=== PATIENT | male | born 1955 | race African-American/Black ===

== ENCOUNTER 2017-01-29 01:55 | Emergency (ER) | payer MEDICAID ==
[~2017-01-29] VITALS: Ht 182.9 cm; Wt 90.7 kg
[2017-01-29 02:00] VITALS: BP 145/86
--- NOTE | 2017-01-29 03:42 | Emergency Room Report ---
History of Present Illness General Chief Complaint: General Complaint Source: Patient Present Illness HPI Is a 61-year-old male with no significant past medical history. He presents with chief complaint of wanting a place to sleep. Also want to see licensed clinical social worker. Patient said that he was in a boarding care about 2 months ago. He left because he said he didn't feel safe there. He has been wandering around [place] in [facility]. He goes to hospital at night. He been placed another boarding care but did not like it. Does not want to go to [facility]. Denies suicidal thought homicidal thought. Denies any pain. No other complaint. Allergies: Coded Allergies: No Known Allergies (Unverified , 01/29/17) Patient History Past Medical History: see triage record, old chart reviewed Past Surgical History: other Pertinent Family History: none Social History: Denies: smoking Immunizations: other Reviewed Nursing Documentation: PMH: Agreed, PSxH: Agreed Nursing Documentation-PMH Hx Hypertension: Yes History Of Psychiatric Problem: Yes - SCHIZO Review of Systems Eye: Denies: blurred vision, eye pain ENT: Denies: ear pain, nose congestion, throat swelling Respiratory: Denies: cough, shortness of breath Cardiovascular: Denies: chest pain, palpitations Gastrointestinal: Denies: abdominal pain, diarrhea, nausea, vomiting Musculoskeletal: Denies: back pain, joint pain Skin: Denies: rash Neurological: Denies: headache, numbness Endocrine: Denies: increased thirst, increased urine Hematologic/Lymphatic: Denies: easy bruising All Other Systems: negative except mentioned in HPI Physical Exam Vital Signs Date Time Temp Pulse Resp B/P Pulse Ox O2 Delivery O2 Flow Rate FiO2 01/29/17 01:47 98.2 90 16 149/85 96 Room Air vitals unremarkable Sp02 EP Interpretation: reviewed, normal General Appearance: well appearing, no apparent distress, alert Head: normocephalic, atraumatic Eyes: bilateral eye EOMI, bilateral eye PERRL ENT: hearing grossly normal, normal pharynx Neck: full range of motion, supple, no meningismus Respiratory: chest non-tender, lungs clear, normal breath sounds Cardiovascular #1: regular rate, rhythm, no murmur Gastrointestinal: normal bowel sounds, non tender, no mass, no organomegaly, no bruit, non-distended Musculoskeletal: back normal, gait/station normal, normal range of motion Neurologic: alert, oriented x3 Psychiatric: mood/affect normal Skin: warm/dry Medical Decision Making Diagnostic Impression: Primary Impression: Encounter for medical screening examination ER Course Patient presents with morning to see licensed clinical social worker. After he slept, he said he wants to leave. Does not want to wait in the morning to see licensed clinical social worker. He is competent to make that decision. He does not want to go to a [facility]. We' ll discharge home. Last Vital Signs Date Time Temp Pulse Resp B/P Pulse Ox O2 Delivery O2 Flow Rate FiO2 01/29/17 02:00 98.2 88 16 145/86 100 Room Air Status: improved Disposition: HOME, SELF-CARE Condition: Stable Referrals: [facility] (PCP) AGA TYSON M.D. Jan 29, 2017 03:42
[2017-01-29 03:50] VITALS: BP 130/87
== END 2017-01-29 03:50 | disposition home or self-care (01) ==
LOC: EDBD 01:55 → EMR 03:30
DX: Z00.00 Encounter for general adult medical examination without abnormal findings (principal); Z59.0 Homelessness; I10 Essential (primary) hypertension; F20.9 Schizophrenia, unspecified
CPT/HCPCS: 99283

== ENCOUNTER 2017-03-24 05:24 | Emergency (ER) | payer MEDICAID ==
[~2017-03-24] VITALS: Ht 182.9 cm; Wt 90.7 kg
--- NOTE | 2017-03-24 05:31 | Emergency Room Report ---
History of Present Illness General Chief Complaint: General Complaint Source: Patient Present Illness HPI 61YOM BIBEMS "because I've been walking all night." Patient was waiting to take train downtown. When he heard it would take 20minutes, he called EMS instead. Earlier this evenign he walked from his [facility] to [place] [facility] and was treated and released. He denies chest pain, SOB, abd pain, headache, fever/ chills, urinary complaints. He denies any pain. States history of HTN but doesnt believe in medication because "it makes me drowsy." States he is trying to control it with meditation. Denies other med or psych problems. Denies taking other medications. Patient seen 01/29 for similar complaint - at the time looking for place to sleep and request to see SW. After sleeping overnight, patient declined wanting to see SW and walked out. Allergies: Coded Allergies: No Known Allergies (Unverified , 01/29/17) Patient History Past Medical History: none Past Surgical History: none Pertinent Family History: none Social History: Denies: alcohol use, drug use, smoking Immunizations: UTD Reviewed Nursing Documentation: PMH: Agreed, PSxH: Agreed Nursing Documentation-PMH Hx Hypertension: Yes Review of Systems All Other Systems: negative except mentioned in HPI Physical Exam Vital Signs Date Time Temp Pulse Resp B/P Pulse Ox O2 Delivery O2 Flow Rate FiO2 03/24/17 05:17 97.5 86 16 170/83 95 Room Air Sp02 EP Interpretation: reviewed, abnormal General Appearance: normal inspection, well appearing, no apparent distress, alert, GCS 15, non-toxic Head: normocephalic, atraumatic Eyes: bilateral eye EOMI, bilateral eye PERRL ENT: normal ENT inspection, hearing grossly normal, normal voice Neck: normal inspection, full range of motion, supple, no bony tend Respiratory: normal inspection, lungs clear, normal breath sounds, no respiratory distress, no retraction, no wheezing Cardiovascular #1: regular rate, rhythm, no edema Gastrointestinal: normal inspection, normal bowel sounds, non tender, soft, no guarding, no hernia Genitourinary: no CVA tenderness Musculoskeletal: normal inspection, back normal, normal range of motion, Jojo' s Sign negative Neurologic: normal inspection, alert, oriented x3, responsive, speech normal Psychiatric: normal inspection, judgement/insight normal, mood/affect normal Skin: other - bed bugs noted on patient Medical Decision Making Diagnostic Impression: Primary Impression: Encounter for generalized patient complaints Additional Impressions: Infestation by bed bug HTN (hypertension) Qualified Codes: I10 - Essential (primary) hypertension ER Course Patient here for medical screening exam Elevated BP. Likely history of HTN - patient non-compliant with medication. Bed bug infestation Patient discharged - advised to go home to [facility] Last Vital Signs Date Time Temp Pulse Resp B/P Pulse Ox O2 Delivery O2 Flow Rate FiO2 03/24/17 05:17 97.5 86 16 170/83 95 Room Air Status: improved Disposition: HOME, SELF-CARE Condition: Improved Patient Instructions: Medical Screening Exam LOYDA RODRIGUEZ M.D. March 24, 2017 05:31
[2017-03-24 05:35] VITALS: BP 170/83
== END 2017-03-24 05:35 | disposition home or self-care (01) ==
LOC: EDBD 05:24 → EMR 05:30
DX: I10 Essential (primary) hypertension (principal); B88.8 Other specified infestations; Z91.14 Patient's other noncompliance with medication regimen
CPT/HCPCS: 99282

== ENCOUNTER 2017-04-15 00:12 | Emergency (ER) | payer MEDICAID ==
[~2017-04-15] VITALS: Ht 175.3 cm; Wt 72.6 kg
[2017-04-15 04:17] VITALS: BP 134/85
--- NOTE | 2017-04-18 09:12 | Emergency Room Report ---
History of Present Illness General Chief Complaint: Behavioral Complaint Source: Patient Present Illness HPI Patient is a 61-year-old male who presented after reportedly being off of his psychiatric medications for several days. Patient stated that he had previous he been on antipsychotics. He denies any suicidal thoughts or homicidal thoughts. Patient stated that he had been having some issues with his living situation. Patient had been staying at a [facility]. He no longer to return to that facility. Patient denied hallucinations. Allergies: Coded Allergies: No Known Allergies (Unverified , 01/29/17) Patient History Past Medical History: see triage record Reviewed Nursing Documentation: PMH: Agreed, PSxH: Agreed Nursing Documentation-PMH Past Medical History: No History, Except For Hx Hypertension: Yes Review of Systems All Other Systems: negative except mentioned in HPI Physical Exam Vital Signs Date Time Temp Pulse Resp B/P Pulse Ox O2 Delivery O2 Flow Rate FiO2 04/15/17 00:16 98.1 69 18 153/76 98 Room Air Sp02 EP Interpretation: reviewed, normal General Appearance: alert/responsive, no apparent distress, GCS 15, non-toxic Head: atraumatic Eyes: PERRL, lids + conjunctiva normal ENT: normal ENT inspection, hearing intact, no angioedema Neck: supple/symm/no masses, no meningismus Respiratory: effort normal, no wheezing, chest symmetrical Cardiovascular: regular rate, rhythm, no edema Cardiovascular #2: 2+ carotid (R), 2+ carotid (L), 2+ dorsalis pedis (R), 2+ dorsalis pedis (L) Gastrointestinal: non-tender, no mass, non-distended, no rebound/guarding, normal bowel sounds Musculoskeletal: gait & station normal, strength & tone normal, normal ROM, non -tender Neurologic: normal inspection, oriented x3, sensory intact, normal speech Psychiatric: normal inspection, judgment & insight normal, memory normal, mood normal Skin: no rash, well hydrated Lymphatic: normal inspection Medical Decision Making Diagnostic Impression: Primary Impression: Schizophrenia Additional Impression: Behavioral change ER Course Patient presented for general complaints. Differential diagnoses include substance abuse, psychosis, bipolar disorder, depression, malingering. The patient reports being off of his medications for several days. Patient was given Zyprexa. Laboratory testing was ordered to medically clear patient for placement. He did not appear to be actively psychotic at this time. The patient subsequently refused laboratory draw he also stated that he did not want to be further cared for in emergency department and wanted to be discharged. He declined placement. The patient was advised followup with outpatient mental health was given referrals. Last Vital Signs Date Time Temp Pulse Resp B/P Pulse Ox O2 Delivery O2 Flow Rate FiO2 04/15/17 04:17 98.8 66 18 134/85 98 Room Air Status: improved Disposition: HOME, SELF-CARE Condition: Improved Referrals: NON PHYSICIAN (PCP) Patient Instructions: Depression, Adult, [id number] George Diallo Apr 18, 2017 09:12
== END 2017-04-15 07:00 | disposition home or self-care (01) ==
LOC: EDBD 00:12 → EDUNIT# 00:12 → EMR 06:33
DX: F20.9 Schizophrenia, unspecified (principal); F68.8 Other specified disorders of adult personality and behavior; I10 Essential (primary) hypertension
CPT/HCPCS: 99283